=== PATIENT | female | born 1990 | race Two or more races ===

== ENCOUNTER 2016-08-19 07:55 | Emergency (ER) | payer OTHER ==
[~2016-08-19] VITALS: Ht 165.1 cm; Wt 77.1 kg
[~2016-08-19 07:55] MED LIST: HYDR-2758 PO; ONDA4TAB10 SL
[2016-08-19 08:00] VITALS: BP 138/103
[2016-08-19] MEDS ORDERED: DEXAMETHASONE 4 MG TABLET PO STA (08:07)
[2016-08-19] MEDS ORDERED: HYDR-971 PO (08:12)
--- NOTE | 2016-08-19 08:12 | PHYS DOC ---
Past Medical History Past Medical History: No Pertinent History Past Surgical History: No Surgical History Alcohol Use: Occasionally Drug Use: None Adult General Chief Complaint Chief Complaint: SORE THROAT HPI HPI Patient is a 26 year old female presenting to the emergency department for evaluation of sore throat. She says that it is quite painful to swallow but she is able to. No fevers chills shortness of breath or other systemic symptoms. Review of Systems Review of Systems Constitutional: Denies fever or chills [] HENT: Denies nasal congestion. + sore throat [] Allergies Allergies Allergies Coded Allergies Type Severity Reaction Last Updated Verified Sulfa (Sulfonamide Antibiotics) Allergy Intermediate RASH 08/06/15 Yes Physical Exam Physical Exam Constitutional: Well developed, well nourished, no acute distress, non-toxic appearance. [] HENT: Normocephalic, atraumatic, oropharynx erythematous, no oral exudates, some postnasal drip noted. Erythema present but not particularly swollen with no obvious peritonsillar abscess. No pain in her neck with moderate sub mandibular lymphadenopathy present. EKG EKG [] Radiology/Procedures Radiology/Procedures [] Course & Med Decision Making Course & Med Decision Making No S/S of TATTOOER, RPA, or epiglottitis. Patient has history of strep throat so we' ll go ahead and treat with Bicillin and Decadron. NSAIDs and Cepacol as an outpatient and [place] for breakthrough pain. Patient aware and agreeable with plan. Dragon Disclaimer Dragon Disclaimer This electronic medical record was generated, in whole or in part, using a voice recognition dictation system. Departure Departure Impression: Primary Impression: Strep throat Disposition: 01 HOME, SELF-CARE Condition: GOOD Referrals: CELESTINE COULTER MD (PCP) Patient Instructions: Strep Throat Additional Instructions: TAKE 400MG OF IBUPROFEN EVERY 6 HOURS AND THE NORCO FOR BREAKTHROUGH PAIN. CEPACOL AND OTHER TOPICAL ANESTHETICS MAY HELP OUT WELL. Scripts Hydrocodone/Apap 5-325 (NORCO 5-325 TABLET) 1 Each Tablet 1 TAB PO PRN Q6HRS Y for PAIN, #14 TAB 0 Refills Prov: LINO MARTE DO 08/19/16 LINO MARTE DO Aug 19, 2016 08:12
[2016-08-19] MEDS ORDERED: PENICILLIN G BENZATHINE LA 1,200,000 UNIT/2 ML DISP.SYRIN. IM ONE (08:15)
[2016-08-19 13:19] LABS: NEGATIVE OBC STREP NEG; POSITIVE OBC STREP POS
== END 2016-08-19 08:23 | disposition home or self-care (01) ==
LOC: ER 07:55
DX: J02.0 Streptococcal pharyngitis (principal); Z88.2 Allergy status to sulfonamides
CPT/HCPCS: 87070; 87880; 96372; 99284; J0561; J8540

== ENCOUNTER → 2016-10-11 | Outpatient (CLI) | payer OTHER ==
[~2016-10-11] MED LIST changes: +HYDR-971 PO
== END | disposition home or self-care (01) ==
LOC: LAB 06:16
PROVIDERS: ATTEND Emergency Medicine
DX: R76.11 Nonspecific reaction to tuberculin skin test without active tuberculosis (principal)
CPT/HCPCS: 36415; 86481

== ENCOUNTER → 2017-10-02 | Outpatient (CLI) | payer OTHER ==
[2017-10-03 05:22] LABS: RUBELLA IGG ANTIBODY <0.90 index (Immune >0.99)
== END | disposition home or self-care (01) ==
LOC: LAB 15:55
DX: Z23 Encounter for immunization (principal); Z28.3 Underimmunization status; Z88.2 Allergy status to sulfonamides
CPT/HCPCS: 36415; 86735; 86762; 86765; 86787

== ENCOUNTER 2018-06-01 12:19 | Emergency (ER) | payer OTHER ==
[~2018-06-01] VITALS: Ht 165.1 cm; Wt 77.1 kg
[~2018-06-01 12:19] MED LIST changes: -HYDR-2758 PO; +HYDR-2761 PO; +HYDR-3164 PO; -HYDR-971 PO
--- NOTE | 2018-06-01 12:39 | PHYS DOC ---
Past Medical History Past Medical History: No Pertinent History Past Surgical History: No Surgical History Alcohol Use: Rarely Drug Use: None Adult General Chief Complaint Chief Complaint: ABDOMINAL PAIN HPI HPI 28-year-old female presents to ER for complaints of upper mid and left side abdominal pain which started yesterday. She reports she has had nausea with one episode of vomiting. She reports she had regular bowel movement today. She states she did have 2 beers yesterday denies any alcohol intake today as she is scheduled to work. She reports pain does increase with repositioning and palpation of upper abdomen. She denies fever or chills. She denies others around her with similar GI issues. Review of Systems Review of Systems Constitutional: Denies fever or chills [] Eyes: Denies change in visual acuity, redness, or eye pain [] HENT: Denies nasal congestion or sore throat [] Respiratory: Denies cough or shortness of breath [] Cardiovascular: No additional information not addressed in HPI [] GI: Denies bloody stools or diarrhea. Reports mid upper and lt side upper abd pain with intermittent N/V : Denies dysuria or hematuria [] Musculoskeletal: Denies back pain or joint pain [] Integument: Denies rash or skin lesions [] Neurologic: Denies headache, focal weakness or sensory changes [] All other systems were reviewed and found to be within normal limits, except as documented in this note. Current Medications Current Medications Current Medications Medications (Trade) Dose Ordered Sig/Carlota Start Time Stop Time Status Last Admin Dose Admin Dicyclomine HCl (Bentyl) 20 mg 1X ONCE 06/01/18 12:45 06/01/18 12:46 DC 06/01/18 12:50 20 MG Multi-Ingredient Mouthwash/Gargle (Gi Cocktail) 20 ml 1X ONCE 06/01/18 14:00 06/01/18 14:03 DC 06/01/18 13:52 20 ML Ondansetron HCl (Zofran) 4 mg 1X ONCE 06/01/18 12:45 06/01/18 12:46 DC 06/01/18 12:50 4 MG Sodium Chloride 1,000 ml @ 1,000 mls/hr 1X ONCE 06/01/18 12:45 06/01/18 13:44 DC 06/01/18 12:49 1,000 MLS/HR Allergies Allergies Allergies Coded Allergies Type Severity Reaction Last Updated Verified Sulfa (Sulfonamide Antibiotics) Allergy Intermediate RASH 08/06/15 Yes Physical Exam Physical Exam Constitutional: Well developed, well nourished, no acute distress, non-toxic appearance. [] HENT: Normocephalic, atraumatic, bilateral external ears normal, oropharynx moist, no oral exudates, nose normal. [] Eyes: Pupils equal, conjunctiva normal, no discharge. [] Neck: Normal range of motion, no tenderness, supple, no stridor. [] Cardiovascular: Heart rate regular rhythm, no murmur [] Lungs & Thorax: Bilateral breath sounds clear to auscultation. Resp. equal/ nonlabored Abdomen: Bowel sounds normal, soft- no distention or rigidity, tender on palp. mid upper and LUQ, no rebound tenderness, no masses, no pulsatile masses. [] Skin: Warm, dry, no erythema, no rash. [] Back: No tenderness, no CVA tenderness. [] Extremities: No tenderness, no cyanosis, no clubbing, ROM intact, no edema. [] Neurologic: Alert and oriented X 3, normal motor function, normal sensory function, no focal deficits noted. [] Psychologic: Affect normal, judgement normal, mood normal. [] Current Patient Data Vital Signs Vital Signs Date Time Temp Pulse Resp B/P (MAP) Pulse Ox O2 Delivery O2 Flow Rate FiO2 06/01/18 12:58 97.9 90 16 141/94 (110) 99 Room Air 97.9 Lab Values Laboratory Tests Test 06/01/18 12:28 06/01/18 12:30 06/01/18 12:45 POC Urine HCG, Qualitative Hcg negative (Negative) Urine Collection Type Unknown Urine Color Yellow Urine Clarity Clear Urine pH 6.0 Urine Specific [place] 1.020 Urine Protein Negative mg/dL (NEG-TRACE) Urine Glucose (UA) Negative mg/dL (NEG) Urine Ketones (Stick) Negative mg/dL (NEG) Urine Blood Negative (NEG) Urine Nitrite Negative (NEG) Urine Bilirubin Negative (NEG) Urine Urobilinogen Dipstick 0.2 mg/dL (0.2 mg/dL) Urine Leukocyte Esterase Negative (NEG) Urine RBC 1-2 /HPF (0-2) Urine WBC Occ /HPF (0-4) Urine Squamous Epithelial Cells Mod /LPF Urine Bacteria 0 /HPF (0-FEW) Urine Mucus Marked /LPF White Blood Count 5.7 x10^3/uL (4.0-11.0) Red Blood Count 4.67 x10^6/uL (3.50-5.40) Hemoglobin 14.4 g/dL (12.0-15.5) Hematocrit 43.8 % (36.0-47.0) Mean Corpuscular Volume 94 fL (79-100) Mean Corpuscular Hemoglobin 31 pg (25-35) Mean Corpuscular Hemoglobin Concent 33 g/dL (31-37) Red Cell Distribution Width 14.0 % (11.5-14.5) Platelet Count 282 x10^3/uL (140-400) Neutrophils (%) (Auto) 79 % (31-73) H Lymphocytes (%) (Auto) 14 % (24-48) L Monocytes (%) (Auto) 5 % (0-9) Eosinophils (%) (Auto) 1 % (0-3) Basophils (%) (Auto) 0 % (0-3) Neutrophils # (Auto) 4.6 x10^3uL (1.8-7.7) Lymphocytes # (Auto) 0.8 x10^3/uL (1.0-4.8) L Monocytes # (Auto) 0.3 x10^3/uL (0.0-1.1) Eosinophils # (Auto) 0.1 x10^3/uL (0.0-0.7) Basophils # (Auto) 0.0 x10^3/uL (0.0-0.2) Sodium Level 137 mmol/L (136-145) Potassium Level 4.0 mmol/L (3.5-5.1) Chloride Level 102 mmol/L (98-107) Carbon Dioxide Level 25 mmol/L (21-32) Anion Gap 10 (6-14) Blood Urea Nitrogen 13 mg/dL (7-20) Creatinine 0.8 mg/dL (0.6-1.0) Estimated GFR (Cockcroft-Gault) 86.0 BUN/Creatinine Ratio 16 (6-20) Glucose Level 92 mg/dL (70-99) Calcium Level 8.6 mg/dL (8.5-10.1) Magnesium Level 2.0 mg/dL (1.8-2.4) Total Bilirubin 0.3 mg/dL (0.2-1.0) Aspartate Amino Transferase (AST) 17 U/L (15-37) Alanine Aminotransferase (ALT) 13 U/L (14-59) L Alkaline Phosphatase 53 U/L (46-116) Total Protein 7.4 g/dL (6.4-8.2) Albumin 3.2 g/dL (3.4-5.0) L Albumin/Globulin Ratio 0.8 (1.0-1.7) L Lipase 122 U/L (73-393) Laboratory Tests 06/01/18 12:45 Laboratory Tests 06/01/18 12:45 EKG EKG [] Radiology/Procedures Radiology/Procedures [] Course & Med Decision Making Course & Med Decision Making Pertinent Labs reviewed. (See chart for details) 1345: Discussed test results with NL WBCs at 5.7 CMP unremarkable with NL lipase. UA neg. for ketones/leuks/blood- neg. HCG. Pt had no active vomiting while in ER and was provided with dose of Zofran and Bentyl. She reports pain continues with minimal relief- does report nausea to have improved. Discussed obtaining imaging and following discussion pt is comfortable with no additional tests as her labs were ok. 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 Following GI cocktail pt reports no change in pain- pain med was offered however pt is preferring no additional tx and feels pain is tolerable. With ongoing pain will provide work note and discharge pt with plans for her to f/u PCP and/or GI for further care and re-eval. Education provided on s&s to return to ER for and discharge instructions were discussed. Pt was provided with Zofran ODT Rx with discharge paperwork. Dragon Disclaimer Dragon Disclaimer This electronic medical record was generated, in whole or in part, using a voice recognition dictation system. Departure Departure Impression: Primary Impression: Abdominal pain Disposition: HOME, SELF-CARE Condition: STABLE Referrals: CELESTINE COULTER MD (PCP) Patient Instructions: Abdominal Pain Additional Instructions: Drink plenty of fluids. Follow-up with your primary care physician if symptoms persist. TOBIAS HERBERT APRN Jun 01, 2018 12:39
[2018-06-01] MEDS ORDERED: ONDANSETRON PF 4 MG/2 ML VIAL. IV ONE (12:45)
[2018-06-01] MEDS ORDERED: IV NORMAL SALINE 1000ML BAG 1,000 ML IV ONE (12:45)
[2018-06-01] MEDS ORDERED: DICYCLOMINE 20 MG/2 ML AMPUL. IM ONE (12:45)
[2018-06-01 12:47] LABS: BILIRUBIN,URINE NEGATIVE (NEG); CLARITY,URINE CLEAR; COLOR,URINE YELLOW; NITRITE,URINE NEGATIVE (NEG); PROTEIN,URINE NEGATIVE (NEG-TRACE); UROBILINOGEN,URINE 0.2 mg/dL (0.2 mg/dL)
[2018-06-01 12:51] LABS: BASO % 0 % (0-3); EOS # 0.1 x10^3/uL (0.0-0.7); EOS % 1 % (0-3); HEMATOCRIT 43.8 % (36.0-47.0); HEMOGLOBIN 14.4 g/dL (12.0-15.5); LYMPH # 0.8 x10^3/uL (1.0-4.8); LYMPH % 14 % (24-48); MEAN CORPUSCULAR HEMOGLOBIN 31 pg (25-35); MEAN CORPUSCULAR HGB CONC 33 g/dL (31-37); MEAN CORPUSCULAR VOLUME 94 fL (79-100); MONO # 0.3 x10^3/uL (0.0-1.1); MONO % 5 % (0-9); NEUT # 4.6 x10^3uL (1.8-7.7); NEUT % 79 % (31-73); PLATELET COUNT 282 x10^3/uL (140-400); RED BLOOD COUNT 4.67 x10^6/uL (3.50-5.40); WHITE BLOOD COUNT 5.7 x10^3/uL (4.0-11.0)
[2018-06-01 12:58] VITALS: BP 141/94
[2018-06-01 12:58] LABS: CALCIUM 8.6 mg/dL (8.5-10.1); CREATININE 0.8 mg/dL (0.6-1.0)
[2018-06-01 13:04] LABS: ALBUMIN 3.2 g/dL (3.4-5.0); ALBUMIN/GLOBULIN RATIO 0.8 (1.0-1.7); TOTAL BILIRUBIN 0.3 mg/dL (0.2-1.0); TOTAL PROTEIN 7.4 g/dL (6.4-8.2)
[2018-06-01 13:06] LABS: SQUAMOUS EPITHELIAL CELL,UR MOD /LPF
[2018-06-01 13:09] LABS: BACTERIA,URINE 0 /HPF (0-FEW); WBC,URINE OCC /HPF (0-4)
[2018-06-01] MEDS ORDERED: LIDO:MAALOX 1:1 20 ML SINGLE DOSE. SWSW ONE (14:00)
== END 2018-06-01 14:41 | disposition home or self-care (01) ==
LOC: ER 12:19
DX: R10.12 Left upper quadrant pain (principal); R11.2 Nausea with vomiting, unspecified; Z88.2 Allergy status to sulfonamides
CPT/HCPCS: 36415; 80053; 81001; 81025; 83690; 83735; 85025; 96361; 96372; 96374; 99283; J0500; J2405; J7030